=== PATIENT | female | born 1990 | race Caucasian/White ===

== ENCOUNTER 2020-08-02 18:52 | Emergency (ER) | payer OTHER ==
[~2020-08-02] VITALS: Ht 167.6 cm; Wt 59.9 kg
--- NOTE | 2020-08-02 19:46 | NUR ---
pt conact number [phone]
--- NOTE | 2020-08-02 20:59 | NUR ---
urine collected. sent to lab
--- NOTE | 2020-08-02 21:02 | NUR ---
pt bibself c/o fever, cough and sob x 10 days. pt aox4 rr even and unlabored. no sob noted. speaking in full sentences. no acute distress noted. pt waiting for md loera.
--- NOTE | 2020-08-02 21:44 | NUR ---
COVID SWAB COLLECTED. SENT TO LAB.
--- NOTE | 2020-08-02 21:53 | NUR ---
Patient discharged to home in stable condition. Written and verbal after care instructions given. Patient verbalizes understanding of instruction. ambulatory with a steady gait noted. pt aaox4 no acute distress noted, resp even and unlabored.
[2020-08-02 21:54] VITALS: BP 116/62
--- NOTE | 2020-08-04 07:43 | NUR ---
called and spoke to patient regarding covid 19 result.
== END 2020-08-02 21:54 | disposition home or self-care (01) ==
LOC: ER 18:56
DX: U07.1 COVID-19 (principal); R06.00 Dyspnea, unspecified
CPT/HCPCS: 71045; 99284; C9803; U0003